=== PATIENT | male | born 1940 | race African-American/Black ===

== ENCOUNTER 2020-08-10 04:23 | Emergency (ER) | payer MEDICARE, OTHER ==
[~2020-08-10] VITALS: Ht 152.4 cm; Wt 65.0 kg
[2020-08-10 06:27] LABS: HEMATOCRIT. 30.8 % (42.0-52.0); HEMOGLOBIN. 9.8 g/dL (14.0-18.0); MEAN CORPUSCULAR HEMOGLOBIN 25.4 pg (28.0-32.0); MEAN CORPUSCULAR VOLUME 80.2 fL (80.0-94.0); PLATELET 262 x1000/uL (130-400); RED BLOOD CELL COUNT 3.84 mill/uL (4.7-6.1); RED CELL DISTRIBUTION WIDTH 17.5 % (11.6-14.6)
[2020-08-10 06:33] LABS: CHLORIDE 102 mEq/L (98-107)
[2020-08-10 07:15] LABS: PLATELET ESTIMATE NORMAL
[2020-08-10 08:56] LABS: CLARITY URINE CLEAR (CLEAR); COLOR URINE YELLOW (YELLOW); KETONES URINE NEGATIVE (NEGATIVE); LEUKOCYTE ESTERASE URINE 3+ (NEGATIVE); NITRITE URINE NEGATIVE (NEGATIVE); OCCULT BLOOD URINE 2+ (NEGATIVE); PROTEIN URINE TRACE (NEGATIVE); SPECIFIC GRAVITY URINE 1.014 (1.005-1.030); UROBILINOGEN URINE 0.2 E.U./dL (0.2-1.0)
[2020-08-10 10:01] VITALS: BP 145/76
== END 2020-08-10 10:13 | disposition home or self-care (01) ==
LOC: ER 04:23 → CANBEDREQ 12:35
DX: N40.1 Benign prostatic hyperplasia with lower urinary tract symptoms (principal); R33.8 Other retention of urine; R79.89 Other specified abnormal findings of blood chemistry; I12.9 Hypertensive chronic kidney disease with stage 1 through stage 4 chronic kidney disease, or unspecified chronic kidney disease; E11.22 Type 2 diabetes mellitus with diabetic chronic kidney disease; N18.9 Chronic kidney disease, unspecified; K57.90 Diverticulosis of intestine, part unspecified, without perforation or abscess without bleeding; M10.9 Gout, unspecified; K21.9 Gastro-esophageal reflux disease without esophagitis
CPT/HCPCS: 36415; 80053; 81003; 85025; 93005; 99283

== ENCOUNTER 2020-11-27 15:04 | Inpatient (IN) | payer MEDICARE, OTHER ==
[~2020-11-27] VITALS: Ht 162.6 cm; Wt 54.7 kg
[2020-11-27] MEDS ORDERED: SODIUM CHLORIDE 0.9% 1,000 ML IV ONE (15:30)
[2020-11-27 15:54] LABS: MEAN CORPUSCULAR HEMOGLOBIN 22.5 pg (28.0-32.0); MEAN CORPUSCULAR VOLUME 74.2 fL (80.0-94.0); MEAN PLATELET VOLUME 9.1 fl (7.4-10.4); PLATELET 72 x1000/uL (130-400); RED BLOOD CELL COUNT 4.44 mill/uL (4.7-6.1); RED CELL DISTRIBUTION WIDTH 17.6 % (11.6-14.6)
[2020-11-27 15:57] LABS: BG BASE EXCESS -4.2 mmol/L (-2.0-2.0); BG CARBOXYHEMOGLOBIN 0.3 % (0.5-1.5); BG DEOXYHEMOGLOBIN 13.1 % (0.0-5.0); BG FRACTION INSPIRED OXYGEN 21; BG HCO3 ACT 19.2 mmol/L (22.0-26.0); BG METHEMOGLOBIN 0.2 % (0.0-1.5); BG OXYGEN SATURATION 86.8 % (92.0-98.5); BG OXYHEMOGLOBIN 86.4 % (94.0-97.0); BG PCO2 29.4 mmHg (35.0-45.0); BG PH 7.432 (7.350-7.450); BG PO2 57.8 mmHg (75.0-100.0); BG TOTAL HEMOGLOBIN 10.3 g/dL (12.0-18.0); BG VENT MODE ROOM AIR
[2020-11-27 15:57] LABS: CHLORIDE 97 mEq/L (98-107)
[2020-11-27 16:00] LABS: INR 1.2; PROTHROMBIN TIME 12.4 sec (9.6-11.0)
[2020-11-27 16:02] LABS: ETHANOL BLOOD < 10 mg/dL
[2020-11-27 16:07] LABS: BETA HYDROXYBUTYRATE 3.1 mMol/L (0.0-0.3)
[2020-11-27] MEDS ORDERED: PIPERACILLIN/TAZ 3.375G PREMIX 50 ML IV ONE (16:30)
[2020-11-27] MEDS ORDERED: VANCOMYCIN 1 G PREMIX 200 ML IV ONE (16:30)
[2020-11-27] MEDS ORDERED: SODIUM CHLORIDE 0.9% 1000ML BAG (SEPSIS BOLUS) IV ONE (16:30)
[2020-11-27 16:33] LABS: PLATELET ESTIMATE DECREAS
[2020-11-27] MEDS ORDERED: INSULIN REGULAR (HUMULIN R) 300UNITS/3ML VIAL SUBCUT NR (18:45)
[2020-11-27] MEDS ORDERED: ENOXAPARIN 40MG/0.4ML SYR SUBCUT SCH ×2 (19:00→22:00)
[2020-11-27] MEDS ORDERED: DEXTROSE 50% WATER 50ML SYRINGE IV PRN (19:00)
[2020-11-27] MEDS ORDERED: ALBUTEROL 6.7GM HFA INHALER ORI PRN (19:00)
[2020-11-27] MEDS ORDERED: ONDANSETRON HCL 4MG/2ML INJ IV PRN (19:00)
[2020-11-27] MEDS ORDERED: CLONIDINE 0.1MG TABLET PO PRN (19:00)
[2020-11-27] MEDS ORDERED: ZOLPIDEM TARTRATE 5MG TABLET PO PRN (19:00)
[2020-11-27] MEDS ORDERED: NITROGLYCERIN 0.4MG TABLET SL SL PRN (19:00)
[2020-11-27] MEDS ORDERED: MAGNESIUM/ALUMINUM HYDROXIDE/SIMETHICONE 30ML UDC PO PRN (19:00)
[2020-11-27] MEDS ORDERED: NA PHOS,M-B/NA PHOS,DI-BA ENEMA 118ML PR PRN (19:00)
[2020-11-27] MEDS ORDERED: GUAIFENESIN 200MG/10ML SUGAR FREE UDC PO PRN (19:00)
[2020-11-27] MEDS ORDERED: ACETAMINOPHEN 325MG TABLET PO PRN ×2 (19:00)
[2020-11-27] MEDS ORDERED: SODIUM CHLORIDE 0.9% 1000ML BAG (SEPSIS BOLUS) IV NR (19:00)
[2020-11-27] MEDS ORDERED: CEFTRIAXONE 1 G PREMIX 50 ML IV SCH (20:00)
[2020-11-27] MEDS ORDERED: FAMOTIDINE 20MG TABLET PO SCH (20:00)
[2020-11-27 20:52] LABS: TOTAL IRON BINDING CAPACITY 201 ug/dL (250-450)
[2020-11-27] MEDS ORDERED: AZITHROMYCIN 500 MG in DEXT 5% WATER 250 ML IV SCH (21:00)
[2020-11-27] MEDS ORDERED: GUAIFENESIN/DM 600MG/30MG ER TAB 12HR PO SCH (21:00)
[2020-11-27 21:36] LABS: VITAMIN B12 SERUM > 2000.0 pg/mL (211-911)
[2020-11-27] MEDS ORDERED: INSULIN GLARGINE UD 100 UNITS/ML SYR SUBCUT SCH (22:00)
[2020-11-27] MEDS: INSULIN LISPRO 100 UNITS/ML SUBCUT SCH (22:18)
[2020-11-27 23:00] VITALS: BP 101/55
[2020-11-27] MEDS: SODIUM CHLORIDE 0.45% 1,000 ML IV SCH (23:00)
[2020-11-27 23:58] LABS: CREATINE KINASE 127 IU/L (39-308)
[2020-11-27 23:59] LABS: CREATINE KINASE MB FRACTION 2.8 ng/mL (0.5-3.6)
[2020-11-28 00:11] LABS: BG BASE EXCESS -9.8 mmol/L (-2.0-2.0); BG CARBOXYHEMOGLOBIN 0.4 % (0.5-1.5); BG DEOXYHEMOGLOBIN 10.7 % (0.0-5.0); BG FRACTION INSPIRED OXYGEN 21; BG HCO3 ACT 14.6 mmol/L (22.0-26.0); BG METHEMOGLOBIN 0.2 % (0.0-1.5); BG OXYGEN SATURATION 89.2 % (92.0-98.5); BG OXYHEMOGLOBIN 88.7 % (94.0-97.0); BG PCO2 27.7 mmHg (35.0-45.0); BG PH 7.341 (7.350-7.450); BG PO2 64.6 mmHg (75.0-100.0); BG SAMPLE SITE RIGHT BRACHIAL; BG TOTAL HEMOGLOBIN 10.5 g/dL (12.0-18.0); BG VENT MODE RESUS BAG
[2020-11-28] MEDS ORDERED: ENOXAPARIN 40MG/0.4ML SYR SUBCUT SCH (00:30)
[2020-11-28 04:00] VITALS: BP 94/56
[2020-11-28] MEDS ORDERED: CEFTRIAXONE 1,000 MG in DEXTROSE 5% WATER 50 ML IV SCH (04:00)
[2020-11-28] MEDS: GLIMEPIRIDE 2MG TABLET PO SCH ×2 (06:00→17:30)
[2020-11-28] MEDS: BLOOD SUGAR DIAGNOSTIC STRIP TEST SCH ×4 (06:40→20:13)
[2020-11-28 06:52] LABS: HEMATOCRIT. 31.1 % (42.0-52.0); HEMOGLOBIN. 9.3 g/dL (14.0-18.0); MEAN CORPUSCULAR HEMOGLOBIN 22.9 pg (28.0-32.0); MEAN CORPUSCULAR VOLUME 76.1 fL (80.0-94.0); MEAN PLATELET VOLUME 9.1 fl (7.4-10.4); RED BLOOD CELL COUNT 4.08 mill/uL (4.7-6.1); RED CELL DISTRIBUTION WIDTH 17.6 % (11.6-14.6)
[2020-11-28 06:55] LABS: CHLORIDE 111 mEq/L (98-107)
[2020-11-28 07:08] LABS: LDL CHOLESTEROL 26 mg/dL (5-100); PHOSPHORUS 5.3 mg/dL (2.5-4.9)
[2020-11-28 07:09] LABS: CREATINE KINASE 153 IU/L (39-308)
[2020-11-28] MEDS: INSULIN LISPRO 100 UNITS/ML SUBCUT SCH ×4 (07:10→20:17)
[2020-11-28 07:11] LABS: CREATINE KINASE MB FRACTION 3.9 ng/mL (0.5-3.6); HDL CHOLESTEROL 12 mg/dL (40-59)
[2020-11-28 07:50] LABS: PLATELET 46 x1000/uL (130-400)
[2020-11-28] MEDS ORDERED: INSULIN LISPRO 100 UNITS/ML SUBCUT SCH (07:50)
[2020-11-28 08:11] VITALS: BP 73/42
[2020-11-28] MEDS: FAMOTIDINE 20MG TABLET PO SCH (09:00)
[2020-11-28] MEDS ORDERED: ENOXAPARIN 30MG/0.3ML SYR SUBCUT SCH (09:00)
[2020-11-28] MEDS: GUAIFENESIN/DM 600MG/30MG ER TAB 12HR PO SCH ×2 (09:00→20:13)
[2020-11-28] MEDS: ALBUTEROL 6.7GM HFA INHALER ORI SCH (09:00)
[2020-11-28] MEDS: CHOLECALCIFEROL (D3) 1000 UNIT TABLET PO SCH (09:00)
[2020-11-28] MEDS: ZINC SULFATE 220 MG ( 50 ) CAPSULE PO SCH (09:00)
[2020-11-28] MEDS ORDERED: CLOPIDOGREL 75MG TABLET PO SCH (09:00)
[2020-11-28] MEDS: DOCUSATE SODIUM 250MG CAPSULE PO SCH (09:00)
[2020-11-28] MEDS ORDERED: DEXAMETHASONE 10 MG/ML VIAL IV SCH (10:00)
[2020-11-28] MEDS: SODIUM CHLORIDE 0.45% 1,000 ML IV SCH ×2 (11:15→17:31)
[2020-11-28 12:00] VITALS: BP 95/52
[2020-11-28 13:35] VITALS: BP 96/55
[2020-11-28] MEDS ORDERED: IPRATROPIUM/ALBUTEROL 0.5-3(2.5)MG/3ML NEB HHN PRN (14:45)
[2020-11-28 15:10] LABS: CLARITY URINE TURBID (CLEAR); COLOR URINE YELLOW (YELLOW); KETONES URINE NEGATIVE (NEGATIVE); LEUKOCYTE ESTERASE URINE 3+ (NEGATIVE); NITRITE URINE NEGATIVE (NEGATIVE); OCCULT BLOOD URINE 2+ (NEGATIVE); PROTEIN URINE 1+ (NEGATIVE); SPECIFIC GRAVITY URINE 1.011 (1.005-1.030); UROBILINOGEN URINE 0.2 E.U./dL (0.2-1.0)
[2020-11-28] MEDS: AZITHROMYCIN 500 MG in DEXT 5% WATER 250 ML IV SCH (17:30)
[2020-11-28 18:00] LABS: NUCLEATED RED BLOOD CELLS 2 /100 WBC; PLATELET ESTIMATE MARKEDLY DECREASED
[2020-11-28 20:00] VITALS: BP 89/62
[2020-11-28 20:29] LABS: HEMATOCRIT. 30.2 % (42.0-52.0); HEMOGLOBIN. 9.1 g/dL (14.0-18.0); MEAN CORPUSCULAR HEMOGLOBIN 22.7 pg (28.0-32.0); MEAN CORPUSCULAR VOLUME 75.4 fL (80.0-94.0); MEAN PLATELET VOLUME 10.5 fl (7.4-10.4); RED CELL DISTRIBUTION WIDTH 17.4 % (11.6-14.6)
[2020-11-28 20:53] LABS: PLATELET 39 x1000/uL (130-400)
[2020-11-28 21:13] LABS: PLATELET ESTIMATE MARKEDLY DECREASED
[2020-11-28] MEDS ORDERED: LORAZEPAM 2MG/ML CPJ IV NR (21:30)
[2020-11-28 22:00] VITALS: BP 91/58
[2020-11-29] VITALS (14 sets, daily range): BP systolic 83–149; BP diastolic 45–97
[2020-11-29] MEDS: SODIUM CHLORIDE 0.45% 1,000 ML IV SCH ×3 (05:27→23:29)
[2020-11-29] MEDS: GLIMEPIRIDE 2MG TABLET PO SCH ×2 (05:28→18:35)
[2020-11-29 06:45] LABS: HEMATOCRIT. 25.4 % (42.0-52.0); HEMOGLOBIN. 7.9 g/dL (14.0-18.0); MEAN CORPUSCULAR HEMOGLOBIN 22.7 pg (28.0-32.0); MEAN CORPUSCULAR VOLUME 73.1 fL (80.0-94.0); MEAN PLATELET VOLUME 9.6 fl (7.4-10.4); RED BLOOD CELL COUNT 3.48 mill/uL (4.7-6.1); RED CELL DISTRIBUTION WIDTH 17.6 % (11.6-14.6)
[2020-11-29] MEDS: BLOOD SUGAR DIAGNOSTIC STRIP TEST SCH ×4 (07:30→21:38)
[2020-11-29 07:54] LABS: PLATELET 31 x1000/uL (130-400)
[2020-11-29] MEDS: IPRATROPIUM/ALBUTEROL 0.5-3(2.5)MG/3ML NEB HHN SCH ×2 (08:44→15:27)
[2020-11-29] MEDS: GUAIFENESIN/DM 600MG/30MG ER TAB 12HR PO SCH ×3 (09:00→21:38)
[2020-11-29] MEDS: CHOLECALCIFEROL (D3) 1000 UNIT TABLET PO SCH (09:09)
[2020-11-29] MEDS: FAMOTIDINE 20MG TABLET PO SCH (09:09)
[2020-11-29] MEDS: DOCUSATE SODIUM 100MG CAPSULE PO PRN (09:09)
[2020-11-29] MEDS: ZINC SULFATE 220 MG ( 50 ) CAPSULE PO SCH (09:10)
[2020-11-29] MEDS: INSULIN LISPRO 100 UNITS/ML SUBCUT SCH ×4 (09:12→21:44)
[2020-11-29] MEDS: DOCUSATE SODIUM 250MG CAPSULE PO SCH (09:25)
[2020-11-29 10:05] LABS: CHLORIDE 114 mEq/L (98-107)
[2020-11-29] MEDS: CEFTRIAXONE 1,000 MG in DEXTROSE 5% WATER 50 ML IV SCH (10:59)
[2020-11-29] MEDS: AZITHROMYCIN 500 MG in DEXT 5% WATER 250 ML IV SCH (13:09)
[2020-11-29 14:01] LABS: PLATELET ESTIMATE MARKEDLY DECREASED
[2020-11-29 15:31] LABS: HEMATOCRIT 29.1 % (42.0-52.0); HEMOGLOBIN 8.8 g/dL (14.0-18.0); MEAN CORPUSCULAR HEMOGLOBIN 22.5 pg (28.0-32.0); MEAN CORPUSCULAR VOLUME 74.6 fL (80.0-94.0); RED CELL DISTRIBUTION WIDTH 17.8 % (11.6-14.6)
[2020-11-29 17:28] LABS: PLATELET 30 x1000/uL (130-400)
[2020-11-30 00:11] LABS: MEAN CORPUSCULAR HEMOGLOBIN 24.7 pg (28.0-32.0); MEAN CORPUSCULAR VOLUME 78.3 fL (80.0-94.0); RED BLOOD CELL COUNT 4.85 mill/uL (4.7-6.1); RED CELL DISTRIBUTION WIDTH 20.4 % (11.6-14.6)
[2020-11-30] MEDS: IPRATROPIUM/ALBUTEROL 0.5-3(2.5)MG/3ML NEB HHN SCH ×4 (00:18→20:54)
[2020-11-30 00:22] LABS: PLATELET 38 x1000/uL (130-400)
[2020-11-30] MEDS: GLIMEPIRIDE 2MG TABLET PO SCH ×2 (05:25→17:29)
[2020-11-30 06:00] VITALS: BP 123/97
[2020-11-30] MEDS ORDERED: MEROPENEM 1,000 MG in SODIUM CHLORIDE 0.9% 100 ML IV SCH (07:00)
[2020-11-30 07:05] LABS: HEMATOCRIT. 34.4 % (42.0-52.0); HEMOGLOBIN. 10.9 g/dL (14.0-18.0); MEAN CORPUSCULAR HEMOGLOBIN 24.6 pg (28.0-32.0); MEAN CORPUSCULAR VOLUME 77.8 fL (80.0-94.0); MEAN PLATELET VOLUME 9.3 fl (7.4-10.4); RED BLOOD CELL COUNT 4.42 mill/uL (4.7-6.1); RED CELL DISTRIBUTION WIDTH 20.3 % (11.6-14.6)
[2020-11-30] MEDS: BLOOD SUGAR DIAGNOSTIC STRIP TEST SCH ×4 (07:41→20:38)
[2020-11-30] MEDS: CEFTRIAXONE 1,000 MG in DEXTROSE 5% WATER 50 ML IV SCH (07:42)
[2020-11-30] MEDS: INSULIN LISPRO 100 UNITS/ML SUBCUT SCH ×4 (08:02→21:58)
[2020-11-30] MEDS: DOCUSATE SODIUM 250MG CAPSULE PO SCH (08:04)
[2020-11-30] MEDS: CHOLECALCIFEROL (D3) 1000 UNIT TABLET PO SCH (08:04)
[2020-11-30] MEDS: FAMOTIDINE 20MG TABLET PO SCH (08:04)
[2020-11-30] MEDS: ZINC SULFATE 220 MG ( 50 ) CAPSULE PO SCH (08:04)
[2020-11-30] MEDS: GUAIFENESIN/DM 600MG/30MG ER TAB 12HR PO SCH ×2 (08:05→20:32)
[2020-11-30 08:33] LABS: PLATELET 31 x1000/uL (130-400)
[2020-11-30 09:09] LABS: IMMUNOGLOBULIN A 286 mg/dL (61-437); IMMUNOGLOBULIN G 757 mg/dL (603-1613); IMMUNOGLOBULIN M 47 mg/dL (15-143)
[2020-11-30] MEDS: MEROPENEM 500MG in NORMAL SALINE 50ML IV SCH ×2 (09:56→20:32)
[2020-11-30] MEDS: DEXTROSE 5% WATER 1,000 ML IV SCH ×2 (11:42→22:05)
[2020-11-30 14:00] VITALS: BP 147/81
[2020-11-30] MEDS: AZITHROMYCIN 500 MG in DEXT 5% WATER 250 ML IV SCH (15:07)
[2020-11-30 20:00] VITALS: BP 110/68
[2020-11-30 20:53] LABS: PLATELET ESTIMATE MARKEDLY DECREASED
[2020-12-01] MEDS: GLIMEPIRIDE 2MG TABLET PO SCH ×2 (05:05→17:30)
[2020-12-01 06:39] LABS: HEMATOCRIT. 34.8 % (42.0-52.0); MEAN CORPUSCULAR HEMOGLOBIN 24.5 pg (28.0-32.0); MEAN CORPUSCULAR VOLUME 77.5 fL (80.0-94.0); MEAN PLATELET VOLUME 9.4 fl (7.4-10.4); RED BLOOD CELL COUNT 4.49 mill/uL (4.7-6.1); RED CELL DISTRIBUTION WIDTH 20.5 % (11.6-14.6)
[2020-12-01] MEDS: IPRATROPIUM/ALBUTEROL 0.5-3(2.5)MG/3ML NEB HHN SCH ×2 (07:30→15:00)
[2020-12-01] MEDS: BLOOD SUGAR DIAGNOSTIC STRIP TEST SCH ×4 (07:40→20:14)
[2020-12-01] MEDS: INSULIN LISPRO 100 UNITS/ML SUBCUT SCH ×4 (07:52→20:34)
[2020-12-01] MEDS: GUAIFENESIN/DM 600MG/30MG ER TAB 12HR PO SCH ×2 (08:25→20:13)
[2020-12-01] MEDS: ZINC SULFATE 220 MG ( 50 ) CAPSULE PO SCH (08:25)
[2020-12-01] MEDS: MEROPENEM 500MG in NORMAL SALINE 50ML IV SCH (08:26)
[2020-12-01] MEDS: CHOLECALCIFEROL (D3) 1000 UNIT TABLET PO SCH (08:26)
[2020-12-01] MEDS: DOCUSATE SODIUM 250MG CAPSULE PO SCH (08:26)
[2020-12-01] MEDS: FAMOTIDINE 20MG TABLET PO SCH (08:26)
[2020-12-01 09:18] LABS: PLATELET 35 x1000/uL (130-400)
[2020-12-01 10:35] LABS: NUCLEATED RED BLOOD CELLS 4 /100 WBC; PLATELET ESTIMATE MARKEDLY DECREASED
[2020-12-01] MEDS: AMLODIPINE 2.5MG TABLET PO SCH ×2 (11:20→20:14)
[2020-12-01] MEDS: DEXTROSE 5% WATER 1,000 ML IV SCH ×3 (12:10→22:26)
[2020-12-01] MEDS ORDERED: INSULIN LISPRO 100 UNITS/ML SUBCUT NR (13:00)
[2020-12-01] MEDS: INSULIN GLARGINE UD 100 UNITS/ML SYR SUBCUT SCH (13:23)
[2020-12-01] MEDS: LEVOFLOXACIN 250MG PREMIX 50 ML IV SCH (13:24)
[2020-12-01 14:00] VITALS: BP 137/71
[2020-12-01] MEDS: AZITHROMYCIN 500 MG in DEXT 5% WATER 250 ML IV SCH (15:55)
[2020-12-01 20:00] VITALS: BP 135/70
[2020-12-02] VITALS (11 sets, daily range): BP systolic 109–172; BP diastolic 44–149
[2020-12-02] MEDS: IPRATROPIUM/ALBUTEROL 0.5-3(2.5)MG/3ML NEB HHN SCH ×4 (01:30→21:59)
[2020-12-02] MEDS: GLIMEPIRIDE 2MG TABLET PO SCH ×2 (05:24→18:46)
[2020-12-02 06:36] LABS: HEMATOCRIT. 36.8 % (42.0-52.0); HEMOGLOBIN. 11.4 g/dL (14.0-18.0); MEAN CORPUSCULAR VOLUME 77.7 fL (80.0-94.0); MEAN PLATELET VOLUME 9.4 fl (7.4-10.4); RED BLOOD CELL COUNT 4.74 mill/uL (4.7-6.1); RED CELL DISTRIBUTION WIDTH 20.6 % (11.6-14.6)
[2020-12-02] MEDS: DEXTROSE 5% WATER 1,000 ML IV SCH ×3 (06:40→23:41)
[2020-12-02 06:56] LABS: PLATELET 40 x1000/uL (130-400)
[2020-12-02] MEDS: BLOOD SUGAR DIAGNOSTIC STRIP TEST SCH ×4 (07:30→21:00)
[2020-12-02] MEDS: INSULIN LISPRO 100 UNITS/ML SUBCUT SCH ×4 (09:34→21:00)
[2020-12-02] MEDS: GUAIFENESIN/DM 600MG/30MG ER TAB 12HR PO SCH ×2 (09:36→23:49)
[2020-12-02] MEDS: DOCUSATE SODIUM 250MG CAPSULE PO SCH (09:36)
[2020-12-02] MEDS: ZINC SULFATE 220 MG ( 50 ) CAPSULE PO SCH (09:36)
[2020-12-02] MEDS: FAMOTIDINE 20MG TABLET PO SCH (09:36)
[2020-12-02] MEDS: DOCUSATE SODIUM 100MG CAPSULE PO PRN (09:36)
[2020-12-02] MEDS: CHOLECALCIFEROL (D3) 1000 UNIT TABLET PO SCH (09:36)
[2020-12-02] MEDS: INSULIN GLARGINE UD 100 UNITS/ML SYR SUBCUT SCH (11:17)
[2020-12-02] MEDS: SULFACETAMIDE SODIUM 10% OPHTH DROPS 15ML BOTHEYE SCH ×4 (11:18→23:40)
[2020-12-02] MEDS: LEVOFLOXACIN 250MG PREMIX 50 ML IV SCH (11:18)
[2020-12-02] MEDS: AMLODIPINE 2.5MG TABLET PO SCH ×2 (11:22→23:41)
[2020-12-02 12:44] LABS: HEMATOCRIT. 37.6 % (42.0-52.0); HEMOGLOBIN. 11.6 g/dL (14.0-18.0); MEAN CORPUSCULAR HEMOGLOBIN 24.4 pg (28.0-32.0); MEAN CORPUSCULAR VOLUME 79.1 fL (80.0-94.0); MEAN PLATELET VOLUME 9.4 fl (7.4-10.4); RED BLOOD CELL COUNT 4.75 mill/uL (4.7-6.1); RED CELL DISTRIBUTION WIDTH 21.4 % (11.6-14.6)
[2020-12-02 12:50] LABS: PLATELET 37 x1000/uL (130-400)
[2020-12-02 14:07] LABS: PLATELET ESTIMATE MARKEDLY DECREASED
[2020-12-02 14:11] LABS: PLATELET ESTIMATE MARKEDLY DECREASED
[2020-12-02] MEDS: AZITHROMYCIN 500 MG in DEXT 5% WATER 250 ML IV SCH (18:46)
[2020-12-03] MEDS: GLIMEPIRIDE 2MG TABLET PO SCH ×2 (05:30→17:55)
[2020-12-03 07:28] LABS: CHLORIDE 123 mEq/L (98-107)
[2020-12-03] MEDS: BLOOD SUGAR DIAGNOSTIC STRIP TEST SCH ×4 (07:49→21:00)
[2020-12-03] MEDS: INSULIN LISPRO 100 UNITS/ML SUBCUT SCH ×4 (07:59→22:44)
[2020-12-03 08:00] VITALS: BP 127/99
[2020-12-03] MEDS: DOCUSATE SODIUM 250MG CAPSULE PO SCH (09:00)
[2020-12-03] MEDS: DOCUSATE SODIUM 100MG CAPSULE PO PRN ×2 (10:02→10:29)
[2020-12-03] MEDS: AMLODIPINE 2.5MG TABLET PO SCH ×2 (10:03→21:00)
[2020-12-03] MEDS: GUAIFENESIN/DM 600MG/30MG ER TAB 12HR PO SCH ×3 (10:03→22:28)
[2020-12-03] MEDS: CHOLECALCIFEROL (D3) 1000 UNIT TABLET PO SCH (10:03)
[2020-12-03] MEDS: INSULIN GLARGINE UD 100 UNITS/ML SYR SUBCUT SCH (10:04)
[2020-12-03] MEDS: IPRATROPIUM/ALBUTEROL 0.5-3(2.5)MG/3ML NEB HHN SCH (10:25)
[2020-12-03] MEDS: SULFACETAMIDE SODIUM 10% OPHTH DROPS 15ML BOTHEYE SCH ×4 (10:27→22:28)
[2020-12-03] MEDS: FAMOTIDINE 20MG TABLET PO SCH (10:27)
[2020-12-03] MEDS: ZINC SULFATE 220 MG ( 50 ) CAPSULE PO SCH (10:27)
[2020-12-03 13:11] LABS: HEMATOCRIT. 38.2 % (42.0-52.0); HEMOGLOBIN. 11.8 g/dL (14.0-18.0); MEAN CORPUSCULAR VOLUME 77.8 fL (80.0-94.0); MEAN PLATELET VOLUME 9.1 fl (7.4-10.4); RED BLOOD CELL COUNT 4.91 mill/uL (4.7-6.1); RED CELL DISTRIBUTION WIDTH 21.3 % (11.6-14.6)
[2020-12-03 14:00] VITALS: BP 97/65
[2020-12-03 14:12] LABS: PLATELET 75 x1000/uL (130-400)
[2020-12-03 14:15] LABS: PLATELET ESTIMATE DECREASED
[2020-12-03] MEDS: LEVOFLOXACIN 250MG PREMIX 50 ML IV SCH (16:17)
[2020-12-03 17:06] LABS: HLA CLASS 1 ANTIBODY Negative (Negative); IIb/IIIa ANTIBODY Negative (Negative); Ib/IX ANTIBODY Negative (Negative)
[2020-12-03 20:00] VITALS: BP 127/69
[2020-12-04] VITALS (20 sets, daily range): BP systolic 86–132; BP diastolic 51–76
[2020-12-04] MEDS: IPRATROPIUM/ALBUTEROL 0.5-3(2.5)MG/3ML NEB HHN SCH (00:05)
[2020-12-04] MEDS: DEXTROSE 5% WATER 1,000 ML IV SCH (03:03)
[2020-12-04] MEDS: GLIMEPIRIDE 2MG TABLET PO SCH ×2 (06:31→18:00)
[2020-12-04 06:57] LABS: HEMATOCRIT. 37.1 % (42.0-52.0); HEMOGLOBIN. 11.2 g/dL (14.0-18.0); MEAN CORPUSCULAR VOLUME 79.6 fL (80.0-94.0); MEAN PLATELET VOLUME 10.5 fl (7.4-10.4); PLATELET 79 x1000/uL (130-400); RED BLOOD CELL COUNT 4.67 mill/uL (4.7-6.1); RED CELL DISTRIBUTION WIDTH 21.3 % (11.6-14.6)
[2020-12-04] MEDS ORDERED: LORAZEPAM 2MG/ML CPJ IV PRN (07:30)
[2020-12-04] MEDS: BLOOD SUGAR DIAGNOSTIC STRIP TEST SCH ×4 (07:30→20:57)
[2020-12-04] MEDS: INSULIN LISPRO 100 UNITS/ML SUBCUT SCH ×4 (08:00→20:59)
[2020-12-04] MEDS ORDERED: PIPERACILLIN/TAZOBACTAM 3.375 G in DEXT 5% WATER 100 ML IV SCH (08:45)
[2020-12-04] MEDS ORDERED: SODIUM BICARBONATE 4% (2.4MEQ) 5ML VIAL IV ONE (08:50)
[2020-12-04] MEDS ORDERED: LIDOCAINE HCL 1% 20ML VIAL (Pyxis) INJ ONE (08:50)
[2020-12-04] MEDS ORDERED: IODIXANOL 320MG/ML 100 ML BOTTLE IV ONE (08:50)
[2020-12-04] MEDS: FAMOTIDINE 20MG TABLET PO SCH (09:00)
[2020-12-04] MEDS: GUAIFENESIN/DM 600MG/30MG ER TAB 12HR PO SCH ×2 (09:00→20:56)
[2020-12-04] MEDS: ZINC SULFATE 220 MG ( 50 ) CAPSULE PO SCH (09:00)
[2020-12-04] MEDS: AMLODIPINE 2.5MG TABLET PO SCH ×2 (09:00→20:58)
[2020-12-04] MEDS: CHOLECALCIFEROL (D3) 1000 UNIT TABLET PO SCH (09:00)
[2020-12-04] MEDS: DOCUSATE SODIUM 250MG CAPSULE PO SCH (09:00)
[2020-12-04] MEDS ORDERED: IOHEXOL-300 50 ML BOTTLE IV ONE (09:45)
[2020-12-04] MEDS ORDERED: FENTANYL CITRATE/PF 50MCG/ML 2ML VIAL ONE (09:46)
[2020-12-04] MEDS: INSULIN GLARGINE UD 100 UNITS/ML SYR SUBCUT SCH (10:00)
[2020-12-04] MEDS ORDERED: FENTANYL CITRATE/PF 50MCG/ML 2ML VIAL IV SCH (10:00)
[2020-12-04] MEDS: PIPERACILLIN/TAZOBACTAM 2.25 G in DEXTROSE 5% WATER 50 ML IV SCH ×3 (12:56→20:56)
[2020-12-04] MEDS: SULFACETAMIDE SODIUM 10% OPHTH DROPS 15ML BOTHEYE SCH ×3 (12:57→20:56)
[2020-12-04 13:59] LABS: PLATELET ESTIMATE DECREASED
[2020-12-05] VITALS: BP 107/69
[2020-12-05] MEDS: DEXTROSE 5% WATER 1,000 ML IV SCH ×4 (00:55→22:16)
[2020-12-05] MEDS: PIPERACILLIN/TAZOBACTAM 2.25 G in DEXTROSE 5% WATER 50 ML IV SCH ×4 (04:49→21:46)
[2020-12-05] MEDS: GLIMEPIRIDE 2MG TABLET PO SCH ×2 (06:45→17:40)
[2020-12-05] MEDS: BLOOD SUGAR DIAGNOSTIC STRIP TEST SCH ×4 (06:51→21:42)
[2020-12-05 07:04] LABS: HEMATOCRIT. 31.6 % (42.0-52.0); HEMOGLOBIN. 9.7 g/dL (14.0-18.0); MEAN CORPUSCULAR HEMOGLOBIN 24.2 pg (28.0-32.0); MEAN CORPUSCULAR VOLUME 78.4 fL (80.0-94.0); MEAN PLATELET VOLUME 11.1 fl (7.4-10.4); PLATELET 105 x1000/uL (130-400); RED BLOOD CELL COUNT 4.03 mill/uL (4.7-6.1)
[2020-12-05] MEDS: IPRATROPIUM/ALBUTEROL 0.5-3(2.5)MG/3ML NEB HHN SCH ×2 (08:11→16:07)
[2020-12-05] MEDS: INSULIN LISPRO 100 UNITS/ML SUBCUT SCH ×4 (08:41→22:00)
[2020-12-05] MEDS: DOCUSATE SODIUM 100MG CAPSULE PO PRN (08:44)
[2020-12-05] MEDS: AMLODIPINE 2.5MG TABLET PO SCH ×2 (08:44→21:42)
[2020-12-05] MEDS: GUAIFENESIN/DM 600MG/30MG ER TAB 12HR PO SCH ×2 (08:44→21:42)
[2020-12-05] MEDS: FAMOTIDINE 20MG TABLET PO SCH (08:44)
[2020-12-05] MEDS: CHOLECALCIFEROL (D3) 1000 UNIT TABLET PO SCH (08:45)
[2020-12-05] MEDS: ZINC SULFATE 220 MG ( 50 ) CAPSULE PO SCH (08:45)
[2020-12-05] MEDS: SULFACETAMIDE SODIUM 10% OPHTH DROPS 15ML BOTHEYE SCH ×4 (08:47→21:41)
[2020-12-05] MEDS: DOCUSATE SODIUM 250MG CAPSULE PO SCH (09:39)
[2020-12-05] MEDS: INSULIN GLARGINE UD 100 UNITS/ML SYR SUBCUT SCH (09:40)
[2020-12-05 13:47] LABS: PLATELET ESTIMATE DECREASED
[2020-12-05 13:53] VITALS: BP 113/60
[2020-12-05 20:00] VITALS: BP 107/94
[2020-12-05 22:00] VITALS: BP 102/52
[2020-12-06] VITALS: BP 93/45
[2020-12-06] MEDS: IPRATROPIUM/ALBUTEROL 0.5-3(2.5)MG/3ML NEB HHN SCH ×3 (00:08→16:56)
[2020-12-06 02:00] VITALS: BP 106/55
[2020-12-06] MEDS: PIPERACILLIN/TAZOBACTAM 2.25 G in DEXTROSE 5% WATER 50 ML IV SCH ×4 (05:28→21:40)
[2020-12-06] MEDS: GLIMEPIRIDE 2MG TABLET PO SCH ×2 (05:28→18:49)
[2020-12-06] MEDS: DEXTROSE 5% WATER 1,000 ML IV SCH ×2 (05:29→15:26)
[2020-12-06] MEDS: BLOOD SUGAR DIAGNOSTIC STRIP TEST SCH ×4 (07:30→21:40)
[2020-12-06] MEDS: INSULIN LISPRO 100 UNITS/ML SUBCUT SCH ×4 (08:00→21:00)
[2020-12-06] MEDS: GUAIFENESIN/DM 600MG/30MG ER TAB 12HR PO SCH (08:55)
[2020-12-06] MEDS: AMLODIPINE 2.5MG TABLET PO SCH ×2 (08:55→21:00)
[2020-12-06] MEDS: FAMOTIDINE 20MG TABLET PO SCH (08:56)
[2020-12-06] MEDS: DOCUSATE SODIUM 250MG CAPSULE PO SCH (08:56)
[2020-12-06] MEDS: CHOLECALCIFEROL (D3) 1000 UNIT TABLET PO SCH (08:56)
[2020-12-06] MEDS: SULFACETAMIDE SODIUM 10% OPHTH DROPS 15ML BOTHEYE SCH ×4 (08:57→22:07)
[2020-12-06] MEDS ORDERED: MIDODRINE HCL 2.5MG TABLET PO SCH (09:15)
[2020-12-06] MEDS: ZINC SULFATE 220 MG ( 50 ) CAPSULE PO SCH (10:36)
[2020-12-06] MEDS: INSULIN GLARGINE UD 100 UNITS/ML SYR SUBCUT SCH (10:38)
[2020-12-06 11:44] LABS: HEMATOCRIT. 32.5 % (42.0-52.0); HEMOGLOBIN. 10.1 g/dL (14.0-18.0); MEAN CORPUSCULAR HEMOGLOBIN 24.1 pg (28.0-32.0); MEAN CORPUSCULAR VOLUME 77.7 fL (80.0-94.0); MEAN PLATELET VOLUME 10.6 fl (7.4-10.4); PLATELET 146 x1000/uL (130-400); RED BLOOD CELL COUNT 4.18 mill/uL (4.7-6.1); RED CELL DISTRIBUTION WIDTH 22.6 % (11.6-14.6)
[2020-12-06] MEDS: MIDODRINE HCL 2.5MG TABLET PO SCH ×2 (13:19→17:57)
[2020-12-06 14:00] VITALS: BP 83/55
[2020-12-06 14:22] LABS: PLATELET ESTIMATE NORMAL
[2020-12-06] MEDS: ACETYLCYSTEINE 100MG/ML 10% VIAL 4ML INH SCH (16:56)
[2020-12-06 20:00] VITALS: BP 85/43
[2020-12-06 22:00] VITALS: BP 103/62
[2020-12-06] MEDS: GUAIFENESIN 600MG ER TABLET PO SCH (22:05)
[2020-12-07] VITALS (9 sets, daily range): BP systolic 86–118; BP diastolic 46–79
[2020-12-07] MEDS: PIPERACILLIN/TAZOBACTAM 2.25 G in DEXTROSE 5% WATER 50 ML IV SCH ×4 (06:25→21:37)
[2020-12-07] MEDS: GLIMEPIRIDE 2MG TABLET PO SCH ×2 (06:25→17:58)
[2020-12-07] MEDS: DEXTROSE 5% WATER 1,000 ML IV SCH ×3 (06:25→20:39)
[2020-12-07] MEDS: INSULIN LISPRO 100 UNITS/ML SUBCUT SCH ×4 (08:00→21:00)
[2020-12-07 08:20] LABS: HEMATOCRIT. 30.7 % (42.0-52.0); HEMOGLOBIN. 9.7 g/dL (14.0-18.0); MEAN CORPUSCULAR HEMOGLOBIN 24.2 pg (28.0-32.0); MEAN CORPUSCULAR VOLUME 76.7 fL (80.0-94.0); PLATELET 160 x1000/uL (130-400); RED BLOOD CELL COUNT 4.01 mill/uL (4.7-6.1); RED CELL DISTRIBUTION WIDTH 22.2 % (11.6-14.6)
[2020-12-07] MEDS: BLOOD SUGAR DIAGNOSTIC STRIP TEST SCH ×4 (08:24→21:00)
[2020-12-07] MEDS: AMLODIPINE 2.5MG TABLET PO SCH (08:26)
[2020-12-07] MEDS: ACETYLCYSTEINE 100MG/ML 10% VIAL 4ML INH SCH ×2 (08:35→15:40)
[2020-12-07] MEDS: IPRATROPIUM/ALBUTEROL 0.5-3(2.5)MG/3ML NEB HHN SCH ×2 (08:35→15:40)
[2020-12-07] MEDS: CHOLECALCIFEROL (D3) 1000 UNIT TABLET PO SCH (08:47)
[2020-12-07] MEDS: FAMOTIDINE 20MG TABLET PO SCH (08:47)
[2020-12-07] MEDS: MIDODRINE HCL 2.5MG TABLET PO SCH ×3 (08:47→17:58)
[2020-12-07] MEDS: ZINC SULFATE 220 MG ( 50 ) CAPSULE PO SCH (08:48)
[2020-12-07] MEDS: SULFACETAMIDE SODIUM 10% OPHTH DROPS 15ML BOTHEYE SCH ×4 (08:48→21:27)
[2020-12-07] MEDS: DOCUSATE SODIUM 100MG CAPSULE PO PRN (08:48)
[2020-12-07] MEDS: GUAIFENESIN 600MG ER TABLET PO SCH ×2 (08:48→21:26)
[2020-12-07] MEDS: DOCUSATE SODIUM 250MG CAPSULE PO SCH (08:51)
[2020-12-07] MEDS: INSULIN GLARGINE UD 100 UNITS/ML SYR SUBCUT SCH (10:00)
[2020-12-07] MEDS ORDERED: POTASSIUM CHLORIDE 20MEQ TABLET SR PO NR (11:00)
[2020-12-07] MEDS: APIXABAN 2.5 MG TABLET PO SCH ×2 (12:27→21:26)
[2020-12-07] MEDS ORDERED: MAGNESIUM 2 G PREMIX 50 ML IV NR (15:00)
[2020-12-07] MEDS: FERROUS SULFATE 300MG/5ML UDC PO SCH (17:57)
[2020-12-07] MEDS: POTASSIUM CHLORIDE 20MEQ TABLET SR PO SCH (17:58)
[2020-12-07 19:04] LABS: PLATELET ESTIMATE NORMAL
[2020-12-08] VITALS: BP 91/56
[2020-12-08] MEDS: PIPERACILLIN/TAZOBACTAM 2.25 G in DEXTROSE 5% WATER 50 ML IV SCH ×4 (03:26→22:31)
[2020-12-08 04:00] VITALS: BP 107/48
[2020-12-08] MEDS: GLIMEPIRIDE 2MG TABLET PO SCH ×2 (05:26→18:20)
[2020-12-08] MEDS: ACETYLCYSTEINE 100MG/ML 10% VIAL 4ML INH SCH ×3 (07:59→14:15)
[2020-12-08] MEDS: IPRATROPIUM/ALBUTEROL 0.5-3(2.5)MG/3ML NEB HHN SCH ×3 (07:59→14:15)
[2020-12-08 08:00] VITALS: BP 108/47
[2020-12-08] MEDS: INSULIN LISPRO 100 UNITS/ML SUBCUT SCH ×4 (08:00→21:00)
[2020-12-08] MEDS: BLOOD SUGAR DIAGNOSTIC STRIP TEST SCH ×4 (08:21→21:00)
[2020-12-08] MEDS: SULFACETAMIDE SODIUM 10% OPHTH DROPS 15ML BOTHEYE SCH ×4 (09:00→21:12)
[2020-12-08] MEDS: DOCUSATE SODIUM 250MG CAPSULE PO SCH (09:00)
[2020-12-08] MEDS: FAMOTIDINE 20MG TABLET PO SCH (09:04)
[2020-12-08] MEDS: MULTIVITAMINS,THER W-MINERALS TABLET PO SCH (09:04)
[2020-12-08] MEDS: CHOLECALCIFEROL (D3) 1000 UNIT TABLET PO SCH (09:04)
[2020-12-08] MEDS: FERROUS SULFATE 300MG/5ML UDC PO SCH ×2 (09:04→18:20)
[2020-12-08] MEDS: MIDODRINE HCL 2.5MG TABLET PO SCH ×3 (09:06→18:21)
[2020-12-08] MEDS: GUAIFENESIN 600MG ER TABLET PO SCH ×2 (09:06→21:12)
[2020-12-08] MEDS: ZINC SULFATE 220 MG ( 50 ) CAPSULE PO SCH (09:08)
[2020-12-08] MEDS: POTASSIUM CHLORIDE 20MEQ TABLET SR PO SCH ×2 (09:08→18:20)
[2020-12-08] MEDS: APIXABAN 2.5 MG TABLET PO SCH ×2 (09:08→21:12)
[2020-12-08] MEDS: DOCUSATE SODIUM 100MG CAPSULE PO PRN (09:08)
[2020-12-08] MEDS: INSULIN GLARGINE UD 100 UNITS/ML SYR SUBCUT SCH (10:00)
[2020-12-08 10:05] LABS: HEMATOCRIT. 31.4 % (42.0-52.0); HEMOGLOBIN. 9.8 g/dL (14.0-18.0); MEAN CORPUSCULAR HEMOGLOBIN 24.3 pg (28.0-32.0); MEAN CORPUSCULAR VOLUME 77.9 fL (80.0-94.0); MEAN PLATELET VOLUME 9.8 fl (7.4-10.4); PLATELET 263 x1000/uL (130-400); RED BLOOD CELL COUNT 4.02 mill/uL (4.7-6.1); RED CELL DISTRIBUTION WIDTH 22.6 % (11.6-14.6)
[2020-12-08 10:32] LABS: PHOSPHORUS 2.7 mg/dL (2.5-4.9)
[2020-12-08 12:00] VITALS: BP 101/47
[2020-12-08 20:00] VITALS: BP 99/51
[2020-12-08] MEDS: DEXTROSE 5% WATER 1,000 ML IV SCH (20:13)
[2020-12-08 21:57] LABS: PLATELET ESTIMATE NORMAL
[2020-12-09] VITALS (7 sets, daily range): BP systolic 93–115; BP diastolic 47–91
[2020-12-09] MEDS: PIPERACILLIN/TAZOBACTAM 2.25 G in DEXTROSE 5% WATER 50 ML IV SCH (04:14)
[2020-12-09 06:16] LABS: BASOPHILS % 0.4 % (0.0-2.0); EOSINOPHILS % 1.6 % (0.0-5.0); HEMOGLOBIN. 9.7 g/dL (14.0-18.0); LYMPHOCYTES % 7.5 % (20.0-50.0); MEAN CORPUSCULAR HEMOGLOBIN 24.1 pg (28.0-32.0); MEAN CORPUSCULAR VOLUME 76.9 fL (80.0-94.0); MEAN PLATELET VOLUME 9.3 fl (7.4-10.4); MONOCYTES % 7.3 % (2.0-8.0); NEUTROPHILS % 83.2 % (40.0-76.0); PLATELET 272 x1000/uL (130-400); RED BLOOD CELL COUNT 4.03 mill/uL (4.7-6.1)
[2020-12-09] MEDS: GLIMEPIRIDE 2MG TABLET PO SCH ×2 (06:17→18:50)
[2020-12-09] MEDS: BLOOD SUGAR DIAGNOSTIC STRIP TEST SCH ×4 (07:30→20:32)
[2020-12-09] MEDS: INSULIN LISPRO 100 UNITS/ML SUBCUT SCH ×4 (08:00→20:32)
[2020-12-09] MEDS: DOCUSATE SODIUM 250MG CAPSULE PO SCH (09:22)
[2020-12-09] MEDS: POTASSIUM CHLORIDE 20MEQ TABLET SR PO SCH ×2 (09:22→17:11)
[2020-12-09] MEDS: CHOLECALCIFEROL (D3) 1000 UNIT TABLET PO SCH (09:22)
[2020-12-09] MEDS: ZINC SULFATE 220 MG ( 50 ) CAPSULE PO SCH (09:23)
[2020-12-09] MEDS: FAMOTIDINE 20MG TABLET PO SCH (09:23)
[2020-12-09] MEDS: FERROUS SULFATE 300MG/5ML UDC PO SCH ×2 (09:23→18:50)
[2020-12-09] MEDS: MULTIVITAMINS,THER W-MINERALS TABLET PO SCH (09:23)
[2020-12-09] MEDS: MIDODRINE HCL 2.5MG TABLET PO SCH ×3 (09:23→17:11)
[2020-12-09] MEDS: APIXABAN 2.5 MG TABLET PO SCH ×2 (09:23→20:32)
[2020-12-09] MEDS: SULFACETAMIDE SODIUM 10% OPHTH DROPS 15ML BOTHEYE SCH (09:33)
[2020-12-09] MEDS: INSULIN GLARGINE UD 100 UNITS/ML SYR SUBCUT SCH (12:17)
[2020-12-09] MEDS: DEXTROSE 5% WATER 1,000 ML IV SCH (12:18)
[2020-12-09] MEDS: GUAIFENESIN 600MG ER TABLET PO SCH ×2 (13:13→20:32)
[2020-12-09] MEDS: AMOXICILLIN/POTASSIUM CLAVULANATE 500/125MG TAB PO SCH ×2 (15:14→20:32)
== END 2020-12-09 21:30 | DRG 871 ==
LOC: ER 15:04 → 7EST 17:46 → EDBEDREQ 17:51 → ENRESERV 20:46 → SUPCPDRO 20:54 → 5EST 11-28 13:09
PROVIDERS: ADMIT Internal Medicine Geriatric Medicine; ATTEND Internal Medicine Geriatric Medicine
PROC: 30233N1 Transfusion of Nonautologous Red Blood Cells into Peripheral Vein, Percutaneous Approach (ICD-10-PCS; 2020-11-29)
PROC: 30233R1 Transfusion of Nonautologous Platelets into Peripheral Vein, Percutaneous Approach (ICD-10-PCS; 2020-12-02)
PROC: 06H03DZ Insertion of Intraluminal Device into Inferior Vena Cava, Percutaneous Approach (ICD-10-PCS; principal; 2020-12-04)
PROC: B519ZZA Fluoroscopy of Inferior Vena Cava, Guidance (ICD-10-PCS; 2020-12-04)
PROC: B549ZZA Ultrasonography of Inferior Vena Cava, Guidance (ICD-10-PCS; 2020-12-04)
DX: A41.9 Sepsis, unspecified organism (principal); E11.00 Type 2 diabetes mellitus with hyperosmolarity without nonketotic hyperglycemic-hyperosmolar coma (NKHHC); E43 Unspecified severe protein-calorie malnutrition; G92 Toxic encephalopathy; J18.9 Pneumonia, unspecified organism; J96.01 Acute respiratory failure with hypoxia; N17.0 Acute kidney failure with tubular necrosis; D65 Disseminated intravascular coagulation [defibrination syndrome]; I26.99 Other pulmonary embolism without acute cor pulmonale; E87.1 Hypo-osmolality and hyponatremia; I82.403 Acute embolism and thrombosis of unspecified deep veins of lower extremity, bilateral; D68.59 Other primary thrombophilia; E87.2 Acidosis; E87.0 Hyperosmolality and hypernatremia; N39.0 Urinary tract infection, site not specified; E83.41 Hypermagnesemia; R65.20 Severe sepsis without septic shock; N40.0 Benign prostatic hyperplasia without lower urinary tract symptoms; N18.9 Chronic kidney disease, unspecified; D63.8 Anemia in other chronic diseases classified elsewhere; D50.9 Iron deficiency anemia, unspecified; E11.65 Type 2 diabetes mellitus with hyperglycemia; Z20.822 Contact with and (suspected) exposure to COVID-19; M10.9 Gout, unspecified; M19.90 Unspecified osteoarthritis, unspecified site; K57.90 Diverticulosis of intestine, part unspecified, without perforation or abscess without bleeding; I48.0 Paroxysmal atrial fibrillation; C61 Malignant neoplasm of prostate; I12.9 Hypertensive chronic kidney disease with stage 1 through stage 4 chronic kidney disease, or unspecified chronic kidney disease; E11.22 Type 2 diabetes mellitus with diabetic chronic kidney disease; E11.649 Type 2 diabetes mellitus with hypoglycemia without coma; F03.90 Unspecified dementia, unspecified severity, without behavioral disturbance, psychotic disturbance, mood disturbance, and anxiety; E83.39 Other disorders of phosphorus metabolism; E87.6 Hypokalemia; R13.10 Dysphagia, unspecified; Z82.49 Family history of ischemic heart disease and other diseases of the circulatory system; Z68.20 Body mass index [BMI] 20.0-20.9, adult; Z85.46 Personal history of malignant neoplasm of prostate; Z87.440 Personal history of urinary (tract) infections; Z90.79 Acquired absence of other genital organ(s); Z95.828 Presence of other vascular implants and grafts
CPT/HCPCS: 36415; 36600; 37191; 71045; 76770; 78582; 80048; 80053; 80061; 80320; 81003; 82010; 82375; 82550; 82553; 82607; 82746; 82784; 82805; 82962; 83036; 83540; 83550; 83605; 83735; 83880; 84100; 84145; 84153; 84443; 84484; 85025; 85027; 86022; 86334; 86850; 86900; 86920; 87077; 87186; 87426; 93005; 93970; 94640; 97116; 97162; 97166; 97530; 99152; 99153; 99291; A9558; C1880; J0456; J0696; J1100; J1644; J1650; J1815; J1956; J2060; J2185; J2405; J2543; J3010; J3370; J3475; J3490; J7030; J7040; J7060; J7070; J7608; P9016; P9034; Q9967; U0003; G0103; G0480; G0500

== ENCOUNTER 2021-02-07 12:08 | Inpatient (IN) | payer MEDICARE, OTHER ==
[~2021-02-07] VITALS: Ht 162.6 cm; Wt 58.7 kg
[2021-02-07 13:10] LABS: MEAN CORPUSCULAR HEMOGLOBIN 24.9 pg (28.0-32.0); MEAN CORPUSCULAR VOLUME 80.2 fL (80.0-94.0); MEAN PLATELET VOLUME 6.9 fl (7.4-10.4); PLATELET 306 x1000/uL (130-400); RED BLOOD CELL COUNT 2.44 mill/uL (4.7-6.1); RED CELL DISTRIBUTION WIDTH 21.1 % (11.6-14.6)
[2021-02-07 13:12] LABS: HEMATOCRIT. 19.6 % (42.0-52.0); HEMOGLOBIN. 6.1 g/dL (14.0-18.0)
[2021-02-07 13:15] LABS: CHLORIDE 87 mEq/L (98-107)
[2021-02-07 13:21] LABS: INR 1.1; PROTHROMBIN TIME 11.6 sec (9.6-11.0)
[2021-02-07 13:47] LABS: PLATELET ESTIMATE NORMAL
[2021-02-07 15:45] LABS: CLARITY URINE TURBID (CLEAR); KETONES URINE 3+ (NEGATIVE); LEUKOCYTE ESTERASE URINE 3+ (NEGATIVE); NITRITE URINE POSITIVE (NEGATIVE); OCCULT BLOOD URINE 3+ (NEGATIVE); PROTEIN URINE 3+ (NEGATIVE); SPECIFIC GRAVITY URINE 1.017 (1.005-1.030)
[2021-02-07 15:46] LABS: COLOR URINE RED (YELLOW)
[2021-02-07 18:00] VITALS: BP 139/78
[2021-02-07] MEDS ORDERED: DEXTROSE 50% WATER 50ML SYRINGE IV PRN (18:15)
[2021-02-07 19:45] VITALS: BP 139/78
[2021-02-07] MEDS ORDERED: ACETAMINOPHEN 500MG TABLET PO PRN (20:15)
[2021-02-07] MEDS ORDERED: GLIMEPIRIDE 2MG TABLET PO NR (20:45)
[2021-02-07] MEDS ORDERED: PANTOPRAZOLE 40MG DR TABLET PO NR (20:45)
[2021-02-07 20:59] LABS: TOTAL IRON BINDING CAPACITY 255 ug/dL (250-450)
[2021-02-07 21:00] VITALS: BP 130/80
[2021-02-07] MEDS: INSULIN LISPRO 100 UNITS/ML SUBCUT SCH (21:00)
[2021-02-07 21:15] VITALS: BP 130/80
[2021-02-07] MEDS: BLOOD SUGAR DIAGNOSTIC STRIP TEST SCH (21:53)
[2021-02-07] MEDS: SODIUM CHLORIDE 0.9% 1,000 ML IV SCH (22:00)
[2021-02-07 22:15] VITALS: BP 129/80
[2021-02-07] MEDS: CEFTRIAXONE 1,000 MG in DEXTROSE 5% WATER 50 ML IV SCH (22:50)
[2021-02-07] MEDS ORDERED: PRIL20 MT (23:02)
[2021-02-07 23:15] VITALS: BP_SYST 129; BP_SYST 132; BP_DIAS 80
[2021-02-08 04:00] VITALS: BP 100/56
[2021-02-08] MEDS: BLOOD SUGAR DIAGNOSTIC STRIP TEST SCH ×4 (06:17→21:00)
[2021-02-08] MEDS: PANTOPRAZOLE 40MG DR TABLET PO SCH (06:53)
[2021-02-08] MEDS: GLIMEPIRIDE 2MG TABLET PO SCH (06:53)
[2021-02-08] MEDS: INSULIN LISPRO 100 UNITS/ML SUBCUT SCH ×4 (06:53→21:00)
[2021-02-08 08:00] VITALS: BP 96/58
[2021-02-08] MEDS: FINASTERIDE 5MG TABLET PO SCH (08:40)
[2021-02-08] MEDS: DOCUSATE SODIUM SUGAR FREE 100MG/10ML UDC PO SCH (08:40)
[2021-02-08 11:07] LABS: HEMATOCRIT. 28.8 % (42.0-52.0); HEMOGLOBIN. 9.5 g/dL (14.0-18.0); MEAN CORPUSCULAR HEMOGLOBIN 26.2 pg (28.0-32.0); MEAN CORPUSCULAR VOLUME 79.3 fL (80.0-94.0); MEAN PLATELET VOLUME 6.9 fl (7.4-10.4); PLATELET 288 x1000/uL (130-400); RED BLOOD CELL COUNT 3.63 mill/uL (4.7-6.1); RED CELL DISTRIBUTION WIDTH 17.7 % (11.6-14.6)
[2021-02-08 11:13] LABS: CHLORIDE 102 mEq/L (98-107)
[2021-02-08] MEDS ORDERED: FERROUS SULFATE 300MG/5ML UDC PO SCH (11:15)
[2021-02-08] MEDS ORDERED: DOCUSATE SODIUM SUGAR FREE 100MG/10ML UDC PO SCH (11:15)
[2021-02-08] MEDS ORDERED: FINASTERIDE 5MG TABLET PO SCH (11:15)
[2021-02-08] MEDS ORDERED: GLIMEPIRIDE 2MG TABLET PO SCH (11:15)
[2021-02-08] MEDS: SODIUM CHLORIDE 0.9% 1,000 ML IV SCH (13:28)
[2021-02-08 16:00] VITALS: BP 104/50
[2021-02-08 16:54] LABS: PLATELET ESTIMATE NORMAL
[2021-02-08] MEDS: FERROUS SULFATE 325MG TABLET PO SCH (18:01)
[2021-02-08 20:00] VITALS: BP 104/64
[2021-02-08] MEDS: CEFTRIAXONE 1,000 MG in DEXTROSE 5% WATER 50 ML IV SCH (22:42)
[2021-02-09] VITALS: BP 110/60
[2021-02-09 04:00] VITALS: BP 101/77
[2021-02-09] MEDS: GLIMEPIRIDE 2MG TABLET PO SCH (06:49)
[2021-02-09] MEDS: PANTOPRAZOLE 40MG DR TABLET PO SCH (06:49)
[2021-02-09] MEDS: BLOOD SUGAR DIAGNOSTIC STRIP TEST SCH ×2 (07:10→11:50)
[2021-02-09] MEDS: INSULIN LISPRO 100 UNITS/ML SUBCUT SCH ×2 (07:40→11:50)
[2021-02-09 08:00] VITALS: BP 108/65
[2021-02-09] MEDS: FERROUS SULFATE 325MG TABLET PO SCH ×2 (08:35→11:53)
[2021-02-09] MEDS: FINASTERIDE 5MG TABLET PO SCH (08:35)
[2021-02-09] MEDS: DOCUSATE SODIUM SUGAR FREE 100MG/10ML UDC PO SCH (08:36)
[2021-02-09] MEDS ORDERED: FERR325T6 MT (09:38)
[2021-02-09] MEDS ORDERED: GLIM4TAB36 PO (09:38)
[2021-02-09] MEDS ORDERED: LEVO500T89 MT (09:38)
[2021-02-09] MEDS: SODIUM CHLORIDE 0.9% 1,000 ML IV SCH (10:15)
[2021-02-09 10:29] LABS: HEMATOCRIT. 28.5 % (42.0-52.0); HEMOGLOBIN. 9.2 g/dL (14.0-18.0); MEAN CORPUSCULAR HEMOGLOBIN 26.4 pg (28.0-32.0); MEAN CORPUSCULAR VOLUME 81.7 fL (80.0-94.0); MEAN PLATELET VOLUME 6.6 fl (7.4-10.4); PLATELET 275 x1000/uL (130-400); RED BLOOD CELL COUNT 3.48 mill/uL (4.7-6.1); RED CELL DISTRIBUTION WIDTH 18.5 % (11.6-14.6)
[2021-02-09 12:00] VITALS: BP 104/59
[2021-02-09 13:05] LABS: PLATELET ESTIMATE NORMAL
[2021-02-09 13:24] VITALS: BP 104/59
[2021-02-10] MEDS ORDERED: FAMOTIDINE 20MG TABLET PO SCH (09:00)
== END 2021-02-09 15:20 | disposition home health service (06) | DRG 690 ==
LOC: ER 12:08 → 8WST 14:18 → EDBEDREQ 14:30 → ENRESERV 15:38
PROVIDERS: ADMIT Internal Medicine Geriatric Medicine; ATTEND Internal Medicine Geriatric Medicine
PROC: 30233N1 Transfusion of Nonautologous Red Blood Cells into Peripheral Vein, Percutaneous Approach (ICD-10-PCS; principal; 2021-02-07)
PROC: 3E1K78Z Irrigation of Genitourinary Tract using Irrigating Substance, Via Natural or Artificial Opening (ICD-10-PCS; 2021-02-08)
DX: N30.21 Other chronic cystitis with hematuria (principal); E22.2 Syndrome of inappropriate secretion of antidiuretic hormone; E46 Unspecified protein-calorie malnutrition; F02.81 Dementia in other diseases classified elsewhere, unspecified severity, with behavioral disturbance; D50.9 Iron deficiency anemia, unspecified; N13.8 Other obstructive and reflux uropathy; I95.9 Hypotension, unspecified; G30.9 Alzheimer's disease, unspecified; E87.8 Other disorders of electrolyte and fluid balance, not elsewhere classified; M10.9 Gout, unspecified; K21.9 Gastro-esophageal reflux disease without esophagitis; E11.29 Type 2 diabetes mellitus with other diabetic kidney complication; N28.9 Disorder of kidney and ureter, unspecified; N40.1 Benign prostatic hyperplasia with lower urinary tract symptoms; E11.69 Type 2 diabetes mellitus with other specified complication; K57.90 Diverticulosis of intestine, part unspecified, without perforation or abscess without bleeding; E11.65 Type 2 diabetes mellitus with hyperglycemia; I10 Essential (primary) hypertension; Z85.46 Personal history of malignant neoplasm of prostate; Z86.711 Personal history of pulmonary embolism; Z87.440 Personal history of urinary (tract) infections; Z86.718 Personal history of other venous thrombosis and embolism; Z82.49 Family history of ischemic heart disease and other diseases of the circulatory system; Z68.22 Body mass index [BMI] 22.0-22.9, adult; Z98.49 Cataract extraction status, unspecified eye
CPT/HCPCS: 36415; 74176; 80048; 80053; 81003; 82962; 83036; 83540; 83550; 84443; 85025; 86850; 86900; 86920; 97162; 99285; J0696; J1815; J7030; J7060; P9016

== ENCOUNTER 2021-03-28 18:58 | Inpatient (IN) | payer MEDICARE, OTHER ==
[~2021-03-28] VITALS: Ht 167.6 cm; Wt 48.6 kg
[~2021-03-28 18:58] MED LIST: FERR325T6 MT; GLIM4TAB36 PO; LEVO500T89 MT; PRIL20 MT
[2021-03-28 19:58] LABS: HEMATOCRIT 26.4 % (42.0-52.0); HEMOGLOBIN 8.5 g/dL (14.0-18.0); MEAN CORPUSCULAR HEMOGLOBIN 24.8 pg (28.0-32.0); PLATELET 451 x1000/uL (130-400); RED BLOOD CELL COUNT 3.43 mill/uL (4.7-6.1); RED CELL DISTRIBUTION WIDTH 17.1 % (11.6-14.6)
[2021-03-28 20:07] LABS: CHLORIDE 92 mEq/L (98-107)
[2021-03-28] MEDS ORDERED: SODIUM CHLORIDE 0.9% 1,000 ML IV ONE (20:30)
[2021-03-28 20:41] LABS: CLARITY URINE TURBID (CLEAR); KETONES URINE 3+ (NEGATIVE); LEUKOCYTE ESTERASE URINE 3+ (NEGATIVE); NITRITE URINE POSITIVE (NEGATIVE); OCCULT BLOOD URINE 3+ (NEGATIVE); PROTEIN URINE 4+ (NEGATIVE); SPECIFIC GRAVITY URINE 1.025 (1.005-1.030)
[2021-03-28 20:44] LABS: COLOR URINE BLOODY (YELLOW)
[2021-03-28] MEDS ORDERED: ONDANSETRON HCL 4MG/2ML INJ IV STA ×2 (21:04→22:13)
[2021-03-28] MEDS ORDERED: MORPHINE SULFATE 4 MG/ML CPJ (NOT FOR IM USE) IV STA ×2 (21:04→22:13)
[2021-03-28] MEDS ORDERED: CEFTRIAXONE 1 G PREMIX 50 ML IV ONE (21:15)
[2021-03-28 22:10] LABS: CHLORIDE 92 mEq/L (98-107)
[2021-03-28] MEDS ORDERED: MORPHINE SULFATE 2 MG/ML CPJ (NOT FOR IM USE) IV PRN (22:15)
[2021-03-28] MEDS ORDERED: DOCUSATE SODIUM 100MG CAPSULE PO PRN (22:15)
[2021-03-28] MEDS ORDERED: ONDANSETRON HCL 4MG/2ML INJ IV PRN (22:15)
[2021-03-28] MEDS ORDERED: HYDROCODONE/ACETAMINOPHEN 5/325MG TABLET PO PRN (22:15)
[2021-03-28] MEDS ORDERED: CLONIDINE 0.1MG TABLET PO PRN (22:15)
[2021-03-28] MEDS: SODIUM CHLORIDE 0.9% 1,000 ML IV SCH (23:03)
[2021-03-29 04:37] LABS: HEMATOCRIT. 34.7 % (42.0-52.0); HEMOGLOBIN. 9.9 g/dL (14.0-18.0); MEAN CORPUSCULAR HEMOGLOBIN 23.9 pg (28.0-32.0); MEAN CORPUSCULAR VOLUME 83.3 fL (80.0-94.0); PLATELET 398 x1000/uL (130-400); RED BLOOD CELL COUNT 4.17 mill/uL (4.7-6.1); RED CELL DISTRIBUTION WIDTH 17.5 % (11.6-14.6)
[2021-03-29 04:43] LABS: CHLORIDE 93 mEq/L (98-107)
[2021-03-29 05:50] LABS: PLATELET ESTIMATE NORMAL
[2021-03-29] MEDS: OMEPRAZOLE 20MG CAPSULE EXTENDED RELEASE PO SCH (11:08)
[2021-03-29] MEDS: FERROUS SULFATE 325MG TABLET PO SCH ×2 (11:08→17:00)
[2021-03-29] MEDS: SODIUM CHLORIDE 0.9% 1,000 ML IV SCH (11:35)
[2021-03-29 17:00] VITALS: BP 122/75
[2021-03-29 17:33] VITALS: BP 122/75
[2021-03-29] MEDS ORDERED: LINA290C PO (19:51)
[2021-03-29 20:00] VITALS: BP 101/46
[2021-03-29] MEDS ORDERED: CEFTRIAXONE 1 G PREMIX 50 ML IV SCH (21:00)
[2021-03-29] MEDS: INSULIN LISPRO 100 UNITS/ML SUBCUT SCH (22:14)
[2021-03-29] MEDS: BLOOD SUGAR DIAGNOSTIC STRIP TEST SCH (22:14)
[2021-03-29] MEDS ORDERED: DEXTROSE 50% WATER 50ML SYRINGE IV PRN (22:15)
[2021-03-30 04:00] VITALS: BP 100/52
[2021-03-30] MEDS: BLOOD SUGAR DIAGNOSTIC STRIP TEST SCH ×4 (05:53→20:40)
[2021-03-30] MEDS: INSULIN LISPRO 100 UNITS/ML SUBCUT SCH ×4 (05:53→20:40)
[2021-03-30] MEDS: OMEPRAZOLE 20MG CAPSULE EXTENDED RELEASE PO SCH (06:35)
[2021-03-30 08:00] VITALS: BP 98/58
[2021-03-30] MEDS ORDERED: LIDOCAINE HCL 1% 20ML VIAL (Pyxis) INJ ONE (08:08)
[2021-03-30 08:51] LABS: HEMATOCRIT. 28.2 % (42.0-52.0); HEMOGLOBIN. 8.8 g/dL (14.0-18.0); MEAN CORPUSCULAR HEMOGLOBIN 24.6 pg (28.0-32.0); MEAN PLATELET VOLUME 7.3 fl (7.4-10.4); PLATELET 442 x1000/uL (130-400); RED BLOOD CELL COUNT 3.57 mill/uL (4.7-6.1); RED CELL DISTRIBUTION WIDTH 17.4 % (11.6-14.6)
[2021-03-30] MEDS: FERROUS SULFATE 325MG TABLET PO SCH ×2 (08:58→09:00)
[2021-03-30] MEDS ORDERED: CEFTRIAXONE 1,000 MG in DEXTROSE 5% WATER 50 ML IV SCH (09:00)
[2021-03-30 09:30] LABS: CHLORIDE 105 mEq/L (98-107)
[2021-03-30] MEDS ORDERED: HALOPERIDOL LACTATE 5MG/ML VIAL IM NR (10:00)
[2021-03-30] MEDS ORDERED: QUETIAPINE FUMARATE 50MG TABLET PO NR (10:30)
[2021-03-30] MEDS: FINASTERIDE 5MG TABLET PO SCH (10:40)
[2021-03-30] MEDS: LORAZEPAM 2MG/ML CPJ IV PRN ×2 (11:04→20:40)
[2021-03-30 12:00] VITALS: BP 121/63
[2021-03-30 13:36] LABS: PLATELET ESTIMATE INCREASED
[2021-03-30 16:00] VITALS: BP 115/55
[2021-03-30 20:00] VITALS: BP 112/66
[2021-03-30] MEDS: QUETIAPINE FUMARATE 50MG TABLET PO SCH (20:36)
[2021-03-30] MEDS ORDERED: NITROFURANTOIN 100MG M/M CAPSULE PO SCH (22:30)
[2021-03-30] MEDS ORDERED: SODIUM POLYSTYRENE SULFONATE 15 G/60 ML BOT PO NR (23:00)
[2021-03-31] VITALS: BP 131/95
[2021-03-31] MEDS ORDERED: CEFTRIAXONE SODIUM 1 G/VIAL IM SCH (01:00)
[2021-03-31] MEDS ORDERED: LIDOCAINE HCL 1% 20ML VIAL (Pyxis) INJ INFIL SCH (01:00)
[2021-03-31 04:00] VITALS: BP 117/63
[2021-03-31] MEDS: BLOOD SUGAR DIAGNOSTIC STRIP TEST SCH ×4 (06:12→21:09)
[2021-03-31] MEDS: FAMOTIDINE 20MG TABLET PO SCH (06:12)
[2021-03-31] MEDS: INSULIN LISPRO 100 UNITS/ML SUBCUT SCH ×4 (06:12→20:53)
[2021-03-31 06:20] LABS: CHLORIDE 105 mEq/L (98-107)
[2021-03-31 06:26] LABS: PHOSPHORUS 3.6 mg/dL (2.5-4.9)
[2021-03-31 06:33] LABS: HEMOGLOBIN. 8.8 g/dL (14.0-18.0); MEAN CORPUSCULAR HEMOGLOBIN 24.7 pg (28.0-32.0); MEAN CORPUSCULAR VOLUME 78.5 fL (80.0-94.0); MEAN PLATELET VOLUME 7.2 fl (7.4-10.4); PLATELET 520 x1000/uL (130-400); RED BLOOD CELL COUNT 3.57 mill/uL (4.7-6.1); RED CELL DISTRIBUTION WIDTH 17.5 % (11.6-14.6)
[2021-03-31 08:00] VITALS: BP 124/68
[2021-03-31] MEDS: FERROUS SULFATE 325MG TABLET PO SCH ×2 (08:56→17:11)
[2021-03-31] MEDS: FINASTERIDE 5MG TABLET PO SCH (08:56)
[2021-03-31] MEDS ORDERED: CEFTRIAXONE SODIUM 1 G/VIAL IM ONE (09:00)
[2021-03-31 11:19] LABS: PLATELET ESTIMATE INCREASED
[2021-03-31 12:00] VITALS: BP 115/86
[2021-03-31] MEDS ORDERED: CEFTRIAXONE SODIUM 1 G/VIAL IM NR (12:30)
[2021-03-31 16:00] VITALS: BP_SYST 136; BP_SYST 87; BP_DIAS 44; BP_DIAS 60
[2021-03-31 20:00] VITALS: BP 105/65
[2021-03-31] MEDS: QUETIAPINE FUMARATE 50MG TABLET PO SCH (20:52)
[2021-04-01] VITALS (12 sets, daily range): BP systolic 90–124; BP diastolic 39–71
[2021-04-01] MEDS: FAMOTIDINE 20MG TABLET PO SCH (06:16)
[2021-04-01] MEDS: BLOOD SUGAR DIAGNOSTIC STRIP TEST SCH ×4 (06:16→20:53)
[2021-04-01] MEDS: INSULIN LISPRO 100 UNITS/ML SUBCUT SCH ×4 (06:16→20:53)
[2021-04-01 07:05] LABS: CHLORIDE 104 mEq/L (98-107)
[2021-04-01 07:09] LABS: HEMATOCRIT. 24.7 % (42.0-52.0); HEMOGLOBIN. 7.7 g/dL (14.0-18.0); MEAN CORPUSCULAR HEMOGLOBIN 24.4 pg (28.0-32.0); MEAN CORPUSCULAR VOLUME 78.6 fL (80.0-94.0); MEAN PLATELET VOLUME 6.9 fl (7.4-10.4); PLATELET 460 x1000/uL (130-400); RED BLOOD CELL COUNT 3.15 mill/uL (4.7-6.1); RED CELL DISTRIBUTION WIDTH 17.6 % (11.6-14.6)
[2021-04-01 07:15] LABS: TOTAL IRON BINDING CAPACITY 200 ug/dL (250-450)
[2021-04-01] MEDS: FINASTERIDE 5MG TABLET PO SCH (08:28)
[2021-04-01] MEDS: FERROUS SULFATE 325MG TABLET PO SCH ×2 (08:28→17:30)
[2021-04-01] MEDS: ACETAMINOPHEN 325MG TABLET PO PRN ×2 (08:33→14:45)
[2021-04-01] MEDS ORDERED: MULTIVITAMINS,THER W-MINERALS TABLET PO SCH (09:00)
[2021-04-01] MEDS ORDERED: GALANTAMINE HBR 8MG ER CAPSULE 24HR PO SCH (09:00)
[2021-04-01] MEDS ORDERED: SULF1TAB48 MT (09:07)
[2021-04-01] MEDS ORDERED: CEFTRIAXONE SODIUM 1 G/VIAL IM NR (10:00)
[2021-04-01] MEDS ORDERED: CEFTRIAXONE 1,000 MG in DEXTROSE 5% WATER 50 ML IV SCH (14:00)
[2021-04-01] MEDS: SODIUM CHLORIDE 0.9% 1,000 ML IV SCH (14:44)
[2021-04-01 19:30] LABS: PLATELET ESTIMATE INCREASED
[2021-04-01] MEDS: QUETIAPINE FUMARATE 50MG TABLET PO SCH (20:52)
== END 2021-04-01 23:05 | disposition home health service (06) | DRG 871 ==
LOC: ER 18:58 → EDBEDREQ 21:44 → 5WST 22:02 → EDBEDREQTM 22:10 → EDBEDREQ 22:10 → ENRESERV 22:37 → CANRESERV 22:37 → EDBEDREQTM 23:31 → EDBEDREQSVC 23:31 → EDBEDREQ 03-29 09:14 → EDBEDREQTM 03-29 09:14 → EDBEDREQSVC 03-29 09:14 → ENRESERV 03-29 16:17 → 5WST 03-29 23:32
PROVIDERS: ADMIT Internal Medicine Geriatric Medicine; ATTEND Internal Medicine Geriatric Medicine
PROC: 02HV33Z Insertion of Infusion Device into Superior Vena Cava, Percutaneous Approach (ICD-10-PCS; principal; 2021-04-01)
PROC: B548ZZA Ultrasonography of Superior Vena Cava, Guidance (ICD-10-PCS; 2021-04-01)
PROC: B5181ZA Fluoroscopy of Superior Vena Cava using Low Osmolar Contrast, Guidance (ICD-10-PCS; 2021-04-01)
PROC: 30233N1 Transfusion of Nonautologous Red Blood Cells into Peripheral Vein, Percutaneous Approach (ICD-10-PCS; 2021-04-01)
DX: A41.9 Sepsis, unspecified organism (principal); G92 Toxic encephalopathy; E87.1 Hypo-osmolality and hyponatremia; E46 Unspecified protein-calorie malnutrition; N02.9 Recurrent and persistent hematuria with unspecified morphologic changes; N39.0 Urinary tract infection, site not specified; N13.8 Other obstructive and reflux uropathy; E87.8 Other disorders of electrolyte and fluid balance, not elsewhere classified; I10 Essential (primary) hypertension; D50.0 Iron deficiency anemia secondary to blood loss (chronic); E83.52 Hypercalcemia; E87.5 Hyperkalemia; K21.9 Gastro-esophageal reflux disease without esophagitis; E11.59 Type 2 diabetes mellitus with other circulatory complications; E11.649 Type 2 diabetes mellitus with hypoglycemia without coma; K57.90 Diverticulosis of intestine, part unspecified, without perforation or abscess without bleeding; K59.00 Constipation, unspecified; M10.9 Gout, unspecified; N40.1 Benign prostatic hyperplasia with lower urinary tract symptoms; Z79.899 Other long term (current) drug therapy; Z78.1 Physical restraint status; Z79.84 Long term (current) use of oral hypoglycemic drugs; Z98.49 Cataract extraction status, unspecified eye; Z90.79 Acquired absence of other genital organ(s); Z95.828 Presence of other vascular implants and grafts; Z85.46 Personal history of malignant neoplasm of prostate; Z86.711 Personal history of pulmonary embolism; Z86.718 Personal history of other venous thrombosis and embolism; Z82.49 Family history of ischemic heart disease and other diseases of the circulatory system
CPT/HCPCS: 36415; 71045; 76937; 80048; 80061; 81003; 82962; 83540; 83550; 83930; 83970; 84100; 84443; 85025; 85027; 86850; 86900; 86920; 87077; 87186; 97116; 97162; 99285; C1725; C1893; J0696; J1815; J2060; J2270; J2405; J3490; J7030; J7040; J7060; P9016; A4315